=== PATIENT | female | born 1990 | race Caucasian/White ===

== ENCOUNTER 2019-09-06 21:26 | Emergency (ER) | payer OTHER ==
[~2019-09-06] VITALS: Ht 160 cm; Wt 72.6 kg
[2019-09-06 21:43] VITALS: BP 125/85
--- NOTE | 2019-09-06 21:48 | NUR ---
PT AMBULATED TO LOBBY
--- NOTE | 2019-09-06 22:51 | NUR ---
PT BROUGHT SELF BACK TO SEAT WITH SIGNIFICANT OTHER. PT BEING EVALUATED BY DR. UMANA.
--- NOTE | 2019-09-06 22:51 | NUR ---
C/O MIGRIANE ALVAREZ X TODAY AT 1200. RATES PAIN 8/10 AND DESCRIBES IT PRESSURE. NO DISTRESS NOTED. SENSATIVE TO LIGHT, AND SOUNDS.A & O X4. DENIES ANY BLURRY VISION. STEADY GAIT. VSS. NKA. PMH: MIGRAINES.
--- NOTE | 2019-09-06 23:19 | NUR ---
APPLIED O2 6L NC PER ERMD ORDER.
--- NOTE | 2019-09-06 23:29 | NUR ---
REMOVED OX PER ERMD ORDER. PT HAS NO RELIEF FROM ALVAREZ. ERMErnesto EVAL PT.
[2019-09-06] MEDS ORDERED: ACETAMINOPHEN EXTRA STRENGTH 500 MG TAB PO ONE (23:35)
[2019-09-06] MEDS ORDERED: METOCLOPRAMIDE 10 MG TAB PO ONE (23:45)
[2019-09-07 00:33] VITALS: BP 125/85
== END 2019-09-07 00:33 | disposition home or self-care (01) ==
LOC: MED 21:26
DX: O26.892 Other specified pregnancy related conditions, second trimester (principal); R51 Headache; Z3A.22 22 weeks gestation of pregnancy; Z98.890 Other specified postprocedural states
CPT/HCPCS: 99283; J8597